=== PATIENT | male | born 1955 | race Caucasian/White ===

== ENCOUNTER 2021-09-26 00:14 | Day surgery (SDC) | payer BC, SELFPAY ==
[2021-09-11 14:06] VITALS: BMI 32.3
[2021-09-26 09:24] VITALS: BP 153/93; PULSE 72; RESP 18; TEMP 36.6; O2SAT 99
[2021-09-26] MEDS: LACTATED RINGERS 1,000 ML 150 ML IV CONT (09:27)
--- NOTE | 2021-09-26 09:39 | WPDANESEPPF ---
Anes - Initial Pre Proc Eval Procedure: Operation Date: 09/26/21 10:00 Proposed Procedures p Screening Colonoscopy - Ishan Gee MD Date/Time: 09/26/21 09:39 Surgeon: Ishan Gee MD Pre Op Diagnosis: family hx of colon polyps Patient Data Age: 65 Gender: M Height: 1.78 m Weight: 104.5 kg Last Vital Signs Temp 36.6 C 09/26/21 09:24 Pulse 72 09/26/21 09:24 Resp 18 09/26/21 09:24 BP 153/93 H 09/26/21 09:24 Pulse Ox 99 09/26/21 09:24 O2 Del Method Room Air 09/26/21 09:24 Allergies Allergy/AdvReac Type Severity Reaction Status Date / Time lisinopril AdvReac Unknown Cough Verified 09/26/21 09:22 Home Medications Medication Instructions Recorded Confirmed Type amlodipine 5 mg tablet 1 tablet PO DAILY 09/11/21 09/26/21 History dutasteride 0.5 mg capsule 1 cap PO DAILY 09/11/21 09/26/21 History losartan 100 mg tablet 1 tablet PO DAILY 09/11/21 09/26/21 History terazosin 1 mg capsule 1 cap PO DAILY 09/11/21 09/26/21 History Patient hx anesthesia problems: none Family hx anesthesia problems: none Results Review: All pre-operative results and documents have been reviewed as part of the pre-operative evaluation. [facility] Past Medical History Medical History (Updated 09/26/21 @ 09:40 by Aric Marsh MD) HTN (hypertension) Obesity Surgical History Surgical History (Updated 09/26/21 @ 09:42 by Aric Marsh MD) H/O colonoscopy Social History Social History Smoking status: Former smoker Tobacco type: cigarettes Alcohol intake: never Substance use: never Substance use type: does not use Living arrangements: with family Spiritual care concerns: No Anes - Eval Final PreProcedure Day of Procedure 09/26/21 09:39 Patient weight: obese Heart: regular rate and rhythm Lungs: clear to auscultation Airway: Mallampati scale class II Neurological: alert and oriented Last oral intake: >/= 8 hours ASA classification: II Emergent: no Anesthetic plan: proceed Anesthesia type and monitoring: general GIVS and standard monitoring Results Review: All pre-operative results and documents have been reviewed as part of the pre-operative evaluation. Informed Consent: The patient's anesthetic plan and its attendant risks and benefits were discussed with the patient/family/POA. Questions were solicited and answers provided to the satisfaction of the patient/family/POA.
--- NOTE | 2021-09-26 10:34 | P.CONGI_ITS ---
Assessment and Plan Assessment and plan (1) Family history of colonic polyps: Code(s): Z83.71 - Family history of colonic polyps Status: Acute Assessment and Plan: Patient's father had colon polyps. For this reason surveillance colonoscopy recommended now and at intervals in the future. GI Consult Note Consult date/time: 09/26/21 10:34 Reason for consult: Neoplasia screening. HPI: Maninder Adam is a 65 year old male Presents for screening colonoscopy. Patient's current weight appetite and bowel movements are normal. He denies abdominal pain. He has had no bleeding. Family history is significant that his father had colon polyps. Patient's last colonoscopy in 2015 was unremarkable. Review of Systems Review of Systems: Review of systems noncontributory. [facility] Past Medical History Medical History (Updated 09/26/21 @ 10:35 by Ishan Gee MD) HTN (hypertension) Obesity Surgical History Surgical History (Updated 09/26/21 @ 09:42 by Aric Marsh MD) H/O colonoscopy Social History Social History Smoking status: Former smoker Tobacco type: cigarettes Alcohol intake: never Substance use: never Substance use type: does not use Living arrangements: with family Spiritual care concerns: No Meds Home Medications and Allergies Home Medications Medication Instructions Recorded Confirmed Type amlodipine 5 mg tablet 1 tablet PO DAILY 09/11/21 09/26/21 History dutasteride 0.5 mg capsule 1 cap PO DAILY 09/11/21 09/26/21 History losartan 100 mg tablet 1 tablet PO DAILY 09/11/21 09/26/21 History terazosin 1 mg capsule 1 cap PO DAILY 09/11/21 09/26/21 History Allergies Allergy/AdvReac Type Severity Reaction Status Date / Time lisinopril AdvReac Unknown Cough Verified 09/26/21 09:22 Vital Signs Vital Signs - 24 hr 09/26/21 09:24 Temperature 97.9 F Pulse Rate 72 Respiratory Rate 18 Blood Pressure 153/93 H Pulse Oximetry 99 Oxygen Delivery Room Air Exam Narrative: Physical exam reveals patient be alert. Vital signs stable. HEENT exam is unremarkable. Patient is anicteric. Lungs are clear to auscultation and percussion. Heart is without murmur or extra sounds. Abdomen bowel sounds present soft nontender with no organomegaly. Digital external rectal exam is normal.
[2021-09-26 11:05] VITALS: BP 129/79; PULSE 54; RESP 20; O2SAT 98
[2021-09-26 11:15] VITALS: BP 128/90; PULSE 55; RESP 12; O2SAT 98
[2021-09-26 11:25] VITALS: BP 136/92; PULSE 49; RESP 15; O2SAT 99
== END 2021-09-26 11:31 | disposition home or self-care (01) ==
PROVIDERS: Visit Provider Internal Medicine Gastroenterology
PROC: 0DJD8ZZ Inspection of Lower Intestinal Tract, Via Natural or Artificial Opening Endoscopic (ICD-10-PCS; CPT 45378; principal; 2021-09-26 10:00)
DX: Z12.11 Encounter for screening for malignant neoplasm of colon (principal); Z83.71 Family history of colonic polyps; K64.8 Other hemorrhoids; K57.30 Diverticulosis of large intestine without perforation or abscess without bleeding; I10 Essential (primary) hypertension; Z87.891 Personal history of nicotine dependence; E66.9 Obesity, unspecified; Z68.33 Body mass index [BMI] 33.0-33.9, adult
CPT/HCPCS: 45378; J2704; J7120